=== PATIENT | female | born 1980 | race Two or more races ===

== ENCOUNTER → 2019-05-18 | Outpatient (CLI) | payer OTHER | END | disposition home or self-care (01) | LOC: PRENATAL 13:30 | DX: O99.89 Other specified diseases and conditions complicating pregnancy, childbirth and the puerperium (principal); O35.3XX1 Maternal care for (suspected) damage to fetus from viral disease in mother, fetus 1 ==

== ENCOUNTER 2019-09-06 11:10 | Inpatient (IN) | payer OTHER ==
[~2019-09-06] VITALS: Ht 154.9 cm; Wt 86.2 kg
[2019-09-06] MEDS ORDERED: SYNTHROID100 MCG PO (11:41)
[2019-09-06] MEDS ORDERED: PRENATAL CAPLE1 EAC1 PO (11:42)
[2019-09-09] MEDS ORDERED: MEDROL2 MG PO (09:35)
== END 2019-09-09 14:17 | disposition home or self-care (01) | DRG 788 ==
LOC: OBS/DEL 11:10 → LDR 13:59 → OB/GYN 13:59 → O/R 17:48 → OB/GYN 18:16
PROVIDERS: ADMIT Obstetrics & Gynecology
PROC: 4A1HXCZ Monitoring of Products of Conception, Cardiac Rate, External Approach (ICD-10-PCS; 2019-09-06)
PROC: 10D00Z1 Extraction of Products of Conception, Low, Open Approach (ICD-10-PCS; principal; 2019-09-06 15:00)
DX: O82 Encounter for cesarean delivery without indication (principal); Z3A.38 38 weeks gestation of pregnancy; Z37.0 Single live birth; O9A.23 Injury, poisoning and certain other consequences of external causes complicating the puerperium; T50.995A Adverse effect of other drugs, medicaments and biological substances, initial encounter